=== PATIENT | female | born 1995 | race Two or more races ===

== ENCOUNTER 2020-07-10 18:28 | Emergency (ER) | payer BC ==
[2020-07-10] MEDS ORDERED: DICYCLOMINE HCL INJ 20 MG/2 ML AMPULE IM ONE (20:28)
[2020-07-10] MEDS ORDERED: NORMAL SALINE 1000 ML 1,000 ML IV ONE (20:28)
[2020-07-10] MEDS ORDERED: ONDANSETRON HCL INJ/PF 4 MG/2 ML SDV IV ONE (20:29)
--- NOTE | 2020-07-10 20:30 | ER Document Report ---
ED Medical Screen (RME) - General Chief Complaint: Abdominal Pain Stated Complaint: ABDOMINAL PAIN/VOMITING Time Seen by Provider: 07/10/20 20:21 Primary Care Provider: ARCADIO COFFMAN MD [Primary Care Provider] - Follow up as needed Mode of Arrival: Ambulatory Information source: Patient Notes: 25-year-old female patient presented to emergency department concern for possible food poisoning. Patient reports she has had abdominal cramping with vomiting for the last 3 days. She states she thinks is food poisoning because told her and her boyfriend both got symptoms after eating fast food. She denies any fever, chills or diarrhea. She does report abdominal pain but states she thinks it is from straining her muscles from vomiting multiple times. Patient has a history of a cholecystectomy and appendectomy. Abdomen soft, nontender. I have greeted and performed a rapid initial assessment of this patient. A comprehensive ED assessment and evaluation of the patient, analysis of test results and completion of the medical decision making process will be conducted by additional ED providers. I have specifically instructed the patient or family members with the patient to immediately return to any nursing staff should anything change in the patient's condition or with their chief complaint. TRAVEL OUTSIDE OF THE [place] IN LAST 30 DAYS: No - Related Data Allergies/Adverse Reactions: No Known Allergies Allergy (Unverified 12/09/13 07:53) Home Medications: levothyroxine. bcp Past Medical History - Social History Chew tobacco use (# tins/day): No Drug Abuse: None - Immunizations Hx Diphtheria, Pertussis, Tetanus Vaccination: Yes Physical Exam - Vital signs Vitals: Temp Pulse Resp BP Pulse Ox 98.0 F 88 16 136/82 H 99 07/10/20 18:33 07/10/20 18:33 07/10/20 18:33 07/10/20 18:33 07/10/20 18:33 Course - Vital Signs Vital signs: Temp Pulse Resp BP Pulse Ox 98.0 F 88 16 136/82 H 99 07/10/20 18:33 07/10/20 18:33 07/10/20 18:33 07/10/20 18:33 07/10/20 18:33 Doctor's Discharge - Discharge Referrals: ARCADIO COFFMAN MD [Primary Care Provider] - Follow up as needed
[2020-07-10 21:41] LABS: ABSOLUTE LYMPHOCYTES (AUTO) 1.1 10^3/uL (0.5-4.7); ABSOLUTE MONOCYTES (AUTO) 0.5 10^3/uL (0.1-1.4); ABSOLUTE NEUT (AUTO) 4.8 10^3/uL (1.7-8.2); BASOPHILS % (AUTO) 0.4 % (0-2); EOSINOPHILS % (AUTO) 0.6 % (0-6); HEMATOCRIT 43.5 % (36.0-47.0); HEMOGLOBIN 15.1 g/dL (12.0-15.5); LYMPHOCYTES % (AUTO) 16.6 % (13-45); MEAN CORPUSCULAR HEMOGLOBIN 31.5 pg (27.0-33.4); MEAN CORPUSCULAR HGB CONC 34.8 g/dL (32.0-36.0); MEAN CORPUSCULAR VOLUME 91 fl (80-97); MONOCYTES % (AUTO) 8.5 % (3-13); PLATELET COUNT 206 10^3/uL (150-450); RED CELL DISTRIBUTION WIDTH 12.8 % (11.5-14.0); SEGMENTED NEUTROPHILS % (AUTO) 73.9 % (42-78); TOTAL CELLS COUNTED % (AUTO) 100 %; WHITE BLOOD COUNT 6.5 10^3/uL (4.0-10.5)
[2020-07-10 21:44] LABS: APPEARANCE,URINE CLEAR; BILIRUBIN,URINE NEGATIVE (NEGATIVE); COLOR,URINE YELLOW; GLUCOSE, URINE NEGATIVE (NEGATIVE); KETONES,URINE TRACE mg/dL (NEGATIVE); LEUKOCYTE ESTERASE,URINE NEGATIVE (NEGATIVE); NITRITE,URINE NEGATIVE (NEGATIVE); PROTEIN,URINE 30 mg/dL (NEGATIVE); URINE SPECIFIC GRAVITY 1.025
[2020-07-10 21:58] LABS: ALBUMIN 4.2 g/dL (3.5-5.0); ALKALINE PHOSPHATASE 45 U/L (38-126); ANION GAP 7 (5-19); ASPARTATE AMINO TRANSFERASE 49 U/L (14-36); BILIRUBIN,DIRECT 0.2 mg/dL (0.0-0.4); BILIRUBIN,TOTAL 0.4 mg/dL (0.2-1.3); BLOOD UREA NITROGEN 9 mg/dL (7-20); CALCIUM 9.2 mg/dL (8.4-10.2); CARBON DIOXIDE 29 mmol/L (22-30); CHLORIDE 101 mmol/L (98-107); GLUCOSE 92 mg/dL (75-110); POTASSIUM 3.7 mmol/L (3.6-5.0); TOTAL PROTEIN 7.4 g/dL (6.3-8.2)
[2020-07-10] MEDS ORDERED: ONDANSETRON 4 MG TAB.RAPDIS PO ONE (23:52)
[2020-07-10] MEDS ORDERED: ONDANSETRON ODT 4 MG TAB (6 TAB/ER DISP) PO PRN (23:58)
--- NOTE | 2020-07-10 23:58 | ER Document Report ---
ED General - General Chief Complaint: Abdominal Pain Stated Complaint: ABDOMINAL PAIN/VOMITING Time Seen by Provider: 07/10/20 20:21 Primary Care Provider: ARCADIO COFFMAN MD [ACTIVE STAFF] - Follow up as needed Mode of Arrival: Ambulatory TRAVEL OUTSIDE OF THE [place] IN LAST 30 DAYS: No - HPI Notes: Patient is a 25-year-old female presents emergency department for evaluation of vomiting abdominal pain. She started feeling sick on June 07 in the evening. She had multiple episodes of nonbloody, nonbilious emesis. She developed some abdominal pain, but she believes is from straining her abdominal muscles. She describes it as sharp and stabbing, states this made worse by movement, is better when she sits still. She has not had any vomiting in the last 24 hours. She believes it may have been food poisoning. Her boyfriend developed symptoms that were similar but he is now without symptoms. She continues to have nausea, she is had decreased p.o. intake. She has not really tried anything for nausea. She had a normal bowel movement earlier today. No fevers or chills. She denies any anosmia, cough, shortness of breath. She denies any urinary symptoms other than decreased urination. - Related Data Allergies/Adverse Reactions: No Known Allergies Allergy (Unverified 12/09/13 07:53) Home Medications: levothyroxine. bcp Past Medical History - General Information source: Patient - Social History Smoking Status: Never Smoker Chew tobacco use (# tins/day): No Drug Abuse: None Family History: Reviewed & Not Pertinent - Unknown, patient is adopted Endocrine Medical History: Reports: Hx Hypothyroidism Past Surgical History: Reports: Hx Appendectomy, Hx Cholecystectomy - Immunizations Hx Diphtheria, Pertussis, Tetanus Vaccination: Yes Review of Systems - Review of Systems Constitutional: No symptoms reported EENT: No symptoms reported Cardiovascular: No symptoms reported Respiratory: No symptoms reported Gastrointestinal: See HPI Genitourinary: No symptoms reported Musculoskeletal: See HPI Skin: No symptoms reported Neurological/Psychological: No symptoms reported Physical Exam - Vital signs Vitals: Temp Pulse Resp BP Pulse Ox 98.0 F 88 16 136/82 H 99 07/10/20 18:33 07/10/20 18:33 07/10/20 18:33 07/10/20 18:33 07/10/20 18:33 - Notes Notes: Vital signs reviewed, please refer to chart. Head is normocephalic, atraumatic. Pupils equal round, reactive to light. Neck is supple without meningismus. Heart is regular rate and rhythm. Lungs are clear to auscultation bilaterally. Abdomen is soft, tender in the left lower and right lower quadrants without rebound or guarding, normoactive bowel sounds throughout. Extremities without cyanosis, clubbing. Posterior calves are nontender. Peripheral pulses are equal. Skin is warm and dry. Patient is awake, alert, neurological exam is nonfocal. Course - Re-evaluation Re-evalutation: 07/10/20 23:56 Patient presents emergency department for evaluation. She was initially seen through triage. Initially IV, IV fluids, IV medications were ordered. This pat ient has largely unremarkable vitals. Her labs show very mild dehydration. She is tolerating p.o. I do not see an indication for IV fluids at this time. Findings were explained to the patient. She is given p.o. Zofran here. I will send her home with prescription for Zofran, 6 Zofran to go. test was not ordered initially. Pending it being negative, patient will be sent home with Zofran and close follow-up. She is to return to the ED with worsening. 07/11/20 00:21 test is negative, patient is discharged. - Vital Signs Vital signs: Temp Pulse Resp BP Pulse Ox 98.3 F 97 14 134/83 H 99 07/10/20 22:04 07/10/20 22:04 07/10/20 22:04 07/10/20 22:04 07/10/20 22:04 - Laboratory Results Result Diagrams: 07/10/20 21:05 07/10/20 21:05 Laboratory Results Interpreted: 07/10/20 07/10/20 21:00 21:05 Sodium 136.6 L AST 49 H ALT 44 H Urine Protein 30 H Urine Ketones TRACE H Urine Blood MODERATE H Urine Urobilinogen 4.0 H Critical Laboratory Results Reviewed: No Critical Results - Radiology Results Critical Radiology Results Reviewed: No Critical Results Discharge - Discharge Clinical Impression: Lower abdominal pain Nausea and vomiting Qualifiers: Vomiting type: unspecified Vomiting Intractability: non-intractable Qualified Code(s): R11.2 - Nausea with vomiting, unspecified Condition: Stable Disposition: HOME, SELF-CARE Instructions: Abdominal Pain ([facility]), Antinausea Medication ([facility]), Vomiting ([facility]) Additional Instructions: Rest. Stay well-hydrated with small, frequent sips of fluids. Zofran as needed for nausea. Follow-up closely with primary care. If you develop worsening pain, increased vomiting, or any other new or concerning symptoms, please return immediately to the emergency department for evaluation. Prescriptions: Ondansetron [Zofran Odt 4 mg Tablet] 1 - 2 tab PO Q4H PRN #15 tab.rapdis PRN Reason: For Nausea/Vomiting Referrals: ARCADIO COFFMAN MD [ACTIVE STAFF] - Follow up as needed
[2020-07-11 00:32] VITALS: BP 126/67
== END 2020-07-11 00:33 | disposition home or self-care (01) ==
LOC: ER 18:28
DX: R11.2 Nausea with vomiting, unspecified (principal); E86.0 Dehydration; R10.30 Lower abdominal pain, unspecified; R10.813 Right lower quadrant abdominal tenderness; R10.814 Left lower quadrant abdominal tenderness; E03.9 Hypothyroidism, unspecified; Z79.899 Other long term (current) drug therapy; Z79.3 Long term (current) use of hormonal contraceptives; Z90.49 Acquired absence of other specified parts of digestive tract
CPT/HCPCS: 99283; 36415; 83690; 85025; 81025; 80053; 81001; S0119